=== PATIENT | female | born 1990 | race American Indian/Alaskan Native ===

== ENCOUNTER 2016-10-03 17:13 | Emergency (ER) | payer SELFPAY ==
[2016-10-03 18:04] LABS: Basophils % (Auto) 0.5 % (0.0-1.8); Eosinophils % (Auto) 1.5 % (0.0-4.3); Hematocrit 38.2 % (30.3-42.9); Hemoglobin 12.3 gm/dl (10.1-14.3); Mean Corpuscular HGB Conc 32 % (30-34); Mean Corpuscular Hemoglobin 27 pg (28-32); Mean Corpuscular Volume 84 fl (79-97); Platelet Count 193 K/mm3 (140-440); Red Blood Count 4.53 M/mm3 (3.65-5.03); Red Cell Distribution Width 14.5 % (13.2-15.2); White Blood Count 4.8 K/mm3 (4.5-11.0)
[2016-10-03 18:26] LABS: Bilirubin,Urine NEG (Negative); Blood,Urine NEG (Negative); Ketones,Urine TR mg/dL (Negative); Leukocyte Esterase,Urine NEG (Negative); Mucus,Urine 3+ /HPF; Nitrite,Urine NEG (Negative); Urobilinogen,Urine < 2.0 mg/dL (<2.0)
--- NOTE | 2016-10-03 21:39 | Emergency Department Report ---
ED Female HPI - General Chief complaint: Urogenital-Female Stated complaint: 6WKS /SPOTTING/CRAMPING/PAIN Time Seen by Provider: 10/03/16 21:35 Source: patient Mode of arrival: Ambulatory Limitations: No Limitations - History of Present Illness Initial comments: 26-year-old female thinks the emergency department with vaginal bleeding and pelvic pain. Patient states symptoms started 1 day prior. She states pelvic pain is cramping in nature, intermittant, no relaxing nor worsening factors. Pt states pain makes her right-sided sciatica worse. Patient states bleeding has been light, intermittent less than one pad used since symptom onset. Patient admits she took a test in the home and was positive. Patient states her last menstrual period was 08/15/2016. She admits she is having urinary symptoms of dysuria. MD Complaint: vaginal bleeding, pelvic pain -: Gradual, days(s) (1) Radiation: other (right hip ) Severity: moderate Severity scale (0 -10): 4 Quality: cramping Consistency: intermittent Improves with: none Worsens with: none Are you Now?: Yes Associated Symptoms: vaginal discharge, vaginal bleeding, abdominal pain. denies: nausea/vomiting, loss of appetite, dysuria, hematuria - Related Data Sexually active: Yes Previous Rx's Medication Instructions Recorded Last Taken Type Acetaminophen/Codeine [Tylenol 1 tab PO Q6H PRN #15 tab 10/04/16 Unknown Rx /Codeine # 3 tab] Metoclopramide [Reglan] 10 mg PO TID #30 tab 10/04/16 Unknown Rx #103/Iron Fumarate/FA 1 each PO DAILY #30 tablet 10/04/16 Unknown Rx [ Tablet] Allergies Allergy/AdvReac Type Severity Reaction Status Date / Time No Known Allergies Allergy Verified 10/03/16 17:28 ED Review of Systems ROS: Stated complaint: 6WKS /SPOTTING/CRAMPING/PAIN Other details as noted in HPI Constitutional: denies: chills, fever Eyes: denies: eye pain, eye discharge, vision change ENT: denies: ear pain, throat pain Respiratory: denies: cough, shortness of breath, wheezing Cardiovascular: denies: chest pain, palpitations Endocrine: no symptoms reported Gastrointestinal: denies: abdominal pain, nausea, diarrhea Genitourinary: abnormal menses. denies: urgency, dysuria, discharge Musculoskeletal: denies: back pain, joint swelling, arthralgia Skin: denies: rash, lesions Neurological: denies: headache, weakness, paresthesias Psychiatric: denies: anxiety, depression Hematological/Lymphatic: denies: easy bleeding, easy bruising ED Past Medical Hx - Past Medical History Previous Medical History?: No - Surgical History Additional Surgical History: X 3 - Social History Smoking Status: Never Smoker Substance Use Type: None - Medications Home Medications: Home Medications Medication Instructions Recorded Confirmed Last Taken Type Acetaminophen/Codeine [Tylenol 1 tab PO Q6H PRN #15 tab 10/04/16 Unknown Rx /Codeine # 3 tab] Metoclopramide [Reglan] 10 mg PO TID #30 tab 10/04/16 Unknown Rx #103/Iron Fumarate/FA 1 each PO DAILY #30 tablet 10/04/16 Unknown Rx [ Tablet] ED Physical Exam - General Limitations: No Limitations ED Course Vital Signs 10/03/16 10/03/16 17:30 21:26 Temperature 99.0 F Pulse Rate 99 H 72 Respiratory 17 18 Rate Blood Pressure 111/73 Blood Pressure 119/80 [Left] O2 Sat by Pulse 98 99 Oximetry ED Medical Decision Making - Lab Data Result diagrams: 10/03/16 17:42 - Radiology Data Radiology results: report reviewed Transvaginal grayscale and color Doppler ultrasound evaluation the pelvis. Fluid filled within the endometrium and endocervical region. No organization within the endometrium to suggest gestational sac formation at this time. Endometrial thickness overall is approximately 13 mM. The ovaries are sonographically unremarkable and measured 1.80.9X1.6 cm on the right and 3.7X1. 6X3.5 centimeters on the left. Final impression no intrauterine identified at this time. Differential diagnosis includes early normal versus abnormal tO include of unknown location/ ectopic . Close interval sonographically and clinical follow-up recommended. Dr. BURGOS - Medical Decision Making 26-year-old female presenting to the emergency department with vaginal bleeding positive test. Beta Quant is below detectable ultrasound levels however patient is aware that she still may have an ectopic and understands she must have close OB follow-up with repeat US and beta quant. Currently patient is comfortable, she has no complaints. She verbalizes understanding of ectopic precautions discussed with her. Critical Care Time: No Critical care attestation.: If time is entered above; I have spent that time in minutes in the direct care of this critically ill patient, excluding procedure time. ED Disposition Clinical Impression: Vaginal bleeding, Threatened Disposition: - TO HOME OR SELFCARE Is pt being admited?: No Does the pt Need Aspirin: No Condition: Stable Instructions: Threatened Miscarriage (ED) Prescriptions: Acetaminophen/Codeine [Tylenol /Codeine # 3 tab] 1 tab PO Q6H PRN #15 tab PRN Reason: Pain , Severe (7-10) Metoclopramide [Reglan] 10 mg PO TID #30 tab #103/Iron Fumarate/FA [ Tablet] 1 each PO DAILY #30 tablet Referrals: PRIMARY CARE, [Primary Care Provider] - 3-5 Days Forms: Work/School Release Form(ED)
[2016-10-03] MEDS ORDERED: NORCO 5/325 PO ONE (21:41)
[2016-10-04 00:41] VITALS: BP 112/72
--- NOTE | 2016-10-04 09:59 | Ultrasound Report ---
FINAL REPORT EXAM: US OB \T\lt; = 14 WEEKS FETUS HISTORY: vag bleeding COMPARISONS: None. FINDINGS: Transabdominal grayscale and color Doppler ultrasound evaluation of the pelvis Fluid fluid within the endometrium and endocervical region. No organization within the endometrium to suggest gestational sac formation at this time. Endometrial thickness overall is approximately 13 millimeters. The ovaries are sonographically unremarkable and measure 1.8 x 0.9 x 1.6 cm on the right and 3.7 x 1.6 x 3.5 cm on the left. IMPRESSION: No intrauterine identified at this time. Differential diagnosis includes early normal versus abnormal to include of unknown location/ectopic . Close interval sonographic and clinical follow-up recommended.
--- NOTE | 2016-10-04 10:02 | Ultrasound Report ---
FINAL REPORT EXAM: US OB TRANSVAGINAL HISTORY: vag bleeding COMPARISONS: None. FINDINGS: Transvaginal grayscale and color Doppler ultrasound evaluation of the pelvis Fluid fluid within the endometrium and endocervical region. No organization within the endometrium to suggest gestational sac formation at this time. Endometrial thickness overall is approximately 13 millimeters. The ovaries are sonographically unremarkable and measure 1.8 x 0.9 x 1.6 cm on the right and 3.7 x 1.6 x 3.5 cm on the left. IMPRESSION: No intrauterine identified at this time. Differential diagnosis includes early normal versus abnormal to include of unknown location/ectopic . Close interval sonographic and clinical follow-up recommended.
== END 2016-10-04 00:39 | disposition home or self-care (01) ==
LOC: ED 17:13
DX: O20.0 Threatened abortion (principal); Z3A.01 Less than 8 weeks gestation of pregnancy
CPT/HCPCS: 36415; 76801; 76817; 81001; 84702; 85025; 86850; 86900; 86901; 87210; 87591; 99284

== ENCOUNTER 2016-10-06 13:41 | Emergency (ER) | payer SELFPAY ==
[2016-10-06 15:38] LABS: Basophils % (Auto) 0.2 % (0.0-1.8); Eosinophils % (Auto) 0.7 % (0.0-4.3); Hematocrit 38.5 % (30.3-42.9); Hemoglobin 12.4 gm/dl (10.1-14.3); Mean Corpuscular HGB Conc 32 % (30-34); Mean Corpuscular Hemoglobin 27 pg (28-32); Mean Corpuscular Volume 85 fl (79-97); Platelet Count 174 K/mm3 (140-440); Red Blood Count 4.56 M/mm3 (3.65-5.03); Red Cell Distribution Width 14.2 % (13.2-15.2); White Blood Count 6.9 K/mm3 (4.5-11.0)
--- NOTE | 2016-10-06 16:01 | Emergency Department Report ---
ED HPI - General Chief complaint: Vaginal Bleeding Stated complaint: 6 WKS W/CRAMPING /BLEEDING Time Seen by Provider: 10/06/16 14:56 Source: patient Mode of arrival: Ambulatory Limitations: No Limitations - History of Present Illness MD Complaint: vaginal bleeding -: Gradual Location: pelvis Radiation: none Severity: mild Severity scale (0 -10): 2 Quality: cramping Consistency: intermittent Improves with: none Worsens with: none Associated symptoms: vaginal bleeding. denies: nausea/vomiting, vaginal discharge, abdominal pain, dysuria, headache, vision changes, malaise, dysparuenia Vaginal bleeding: light :: Yes Number of weeks : 5 OB History - Current : no complications OB History - Previous Pregnancies: no complications Last menstrual period: 06/29/16 Pre-aracelis care: none - Related Data : 6 Para: 5 Ab: 1 Previous Rx's Medication Instructions Recorded Last Taken Type Acetaminophen/Codeine [Tylenol 1 tab PO Q6H PRN #15 tab 10/04/16 Unknown Rx /Codeine # 3 tab] Metoclopramide [Reglan] 10 mg PO TID #30 tab 10/04/16 Unknown Rx #103/Iron Fumarate/FA 1 each PO DAILY #30 tablet 10/04/16 Unknown Rx [ Tablet] Allergies Allergy/AdvReac Type Severity Reaction Status Date / Time No Known Allergies Allergy Verified 10/03/16 17:28 ED Review of Systems ROS: Stated complaint: 6 WKS W/CRAMPING /BLEEDING Other details as noted in HPI Comment: All other systems reviewed and negative ED Past Medical Hx - Past Medical History Previous Medical History?: No - Surgical History Additional Surgical History: X 3 - Social History Smoking Status: Never Smoker Substance Use Type: None - Medications Home Medications: Home Medications Medication Instructions Recorded Confirmed Last Taken Type Acetaminophen/Codeine [Tylenol 1 tab PO Q6H PRN #15 tab 10/04/16 Unknown Rx /Codeine # 3 tab] Metoclopramide [Reglan] 10 mg PO TID #30 tab 10/04/16 Unknown Rx #103/Iron Fumarate/FA 1 each PO DAILY #30 tablet 10/04/16 Unknown Rx [ Tablet] ED Physical Exam - General Limitations: No Limitations General appearance: alert, in no apparent distress - Head Head exam: Present: atraumatic, normocephalic - Eye Eye exam: Present: normal appearance, PERRL - ENT ENT exam: Present: normal exam, mucous membranes moist - Neck Neck exam: Present: normal inspection - Respiratory Respiratory exam: Present: normal lung sounds bilaterally. Absent: respiratory distress - Cardiovascular Cardiovascular Exam: Present: regular rate, normal rhythm. Absent: systolic murmur, diastolic murmur, rubs, gallop - GI/Abdominal GI/Abdominal exam: Present: soft, normal bowel sounds. Absent: distended, tenderness, guarding, rebound - Extremities Exam Extremities exam: Present: normal inspection - Back Exam Back exam: Present: normal inspection - Neurological Exam Neurological exam: Present: alert, oriented X3 - Psychiatric Psychiatric exam: Present: normal affect, normal mood - Skin Skin exam: Present: warm, dry, intact, normal color. Absent: rash ED Course Vital Signs 10/06/16 14:31 Temperature 97.9 F Pulse Rate 87 Respiratory 18 Rate Blood Pressure 109/73 O2 Sat by Pulse 99 Oximetry ED Medical Decision Making - Lab Data Result diagrams: 10/06/16 14:57 - Medical Decision Making patient doing well, hcg slightly elevated , rest of the labs negative , went from 107 to 230, will need a repeat 48 h hcg done here Critical care attestation.: If time is entered above; I have spent that time in minutes in the direct care of this critically ill patient, excluding procedure time. ED Disposition Clinical Impression: Abdominal pain Disposition: DC-01 TO HOME OR SELFCARE Is pt being admited?: No Does the pt Need Aspirin: No Condition: Good Instructions: Threatened Miscarriage (ED) Referrals: PRIMARY CARE, [Primary Care Provider] - 3-5 Days Time of Disposition: 16:15
[2016-10-06 16:21] LABS: Anion Gap 17 mmol/L; BUN/Creatinine Ratio 6.66; Blood Urea Nitrogen 4 mg/dL (7-17); Calcium 9.1 mg/dL (8.4-10.2); Carbon Dioxide 24 mmol/L (22-30); Chloride 105.8 mmol/L (98-107); Glucose 79 mg/dL (65-100); Potassium 3.8 mmol/L (3.6-5.0); Sodium 143 mmol/L (137-145)
[2016-10-06 16:38] VITALS: BP 111/75
== END 2016-10-06 16:36 | disposition home or self-care (01) ==
LOC: ED 13:41
DX: R10.9 Unspecified abdominal pain (principal); N93.9 Abnormal uterine and vaginal bleeding, unspecified
CPT/HCPCS: 36415; 80048; 84702; 85025; 99283

== ENCOUNTER 2016-10-09 08:44 | Emergency (ER) | payer SELFPAY ==
[2016-10-09 09:32] VITALS: BP 115/71
--- NOTE | 2016-10-09 12:12 | Emergency Department Report ---
HPI - General Chief Complaint: Vaginal Bleeding Time Seen by Provider: 10/09/16 11:14 - HPI HPI: This is a 26-year-old female who was presents to ED for the third time for vaginal bleeding and . Patient states above 3 days ago she started some heavy bleeding like a period. She states bleeding has not stopped the past 3 days. Patient states she was told to come back for an ultrasound" level. She denies abdominal pain. She states mild low intermittent cramping like a period. She denies fevers/chills/nausea/vomiting/ ED Past Medical Hx - Past Medical History Previous Medical History?: No - Surgical History Additional Surgical History: X 3 - Social History Smoking Status: Never Smoker Substance Use Type: None - Medications Home Medications: Home Medications Medication Instructions Recorded Confirmed Last Taken Type Acetaminophen/Codeine [Tylenol 1 tab PO Q6H PRN #15 tab 10/04/16 Unknown Rx /Codeine # 3 tab] Metoclopramide [Reglan] 10 mg PO TID #30 tab 10/04/16 Unknown Rx #103/Iron Fumarate/FA 1 each PO DAILY #30 tablet 10/04/16 Unknown Rx [ Tablet] Ibuprofen [Motrin] 800 mg PO Q8HR PRN #40 tablet 10/09/16 Unknown Rx ED Review of Systems ROS: Stated complaint: X6 WKS/BLEEDING/BACK PAIN Other details as noted in HPI Constitutional: denies: chills, fever Eyes: denies: eye pain, eye discharge, vision change ENT: denies: ear pain, throat pain Respiratory: denies: cough, shortness of breath, wheezing Cardiovascular: denies: chest pain, palpitations Endocrine: no symptoms reported Gastrointestinal: denies: abdominal pain, nausea, diarrhea Genitourinary: denies: urgency, dysuria, discharge Musculoskeletal: denies: back pain, joint swelling, arthralgia Skin: denies: rash, lesions Neurological: denies: headache, weakness, paresthesias Psychiatric: denies: anxiety, depression Hematological/Lymphatic: denies: easy bleeding, easy bruising Physical Exam - Physical Exam Vital Signs: Vital Signs 10/09/16 09:32 Temperature 98.4 F Pulse Rate 79 Respiratory 18 Rate Blood Pressure 115/71 [Right] O2 Sat by Pulse 100 Oximetry Physical Exam: GENERAL: Alert and oriented x3, no apparent distress, Normal Gait, atraumatic. HEAD: Head is normocephalic and a-traumatic. LUNGS: Symetrical with respiration, No wheezing, no rales or crackles, CTAB. HEART: S1, S2 present, regular rate and rhythm without murmur, no rubs, no gallops. Non tender to palpation ABDOMEN: No organomegaly was noted,Positive bowel sounds, soft, and non- distended. . Nontender to palpation on all Quadrants, NO CVA tenderness. GENITOURINARY: External genitalia without erythema, active blood smear. Vaginal vault is with moderate dark red blood. Cervix is of normal color without lesion. Cervical os open, active bleeding. Uterus is noted to be of normal size and nontender. No cervical motion tenderness. No masses are palpated. The adnexa are without masses or tenderness. SKIN: Warm and dry, No lesions, No ulceration or induration present. ED Course Vital Signs 10/09/16 09:32 Temperature 98.4 F Pulse Rate 79 Respiratory 18 Rate Blood Pressure 115/71 [Right] O2 Sat by Pulse 100 Oximetry ED Medical Decision Making - Radiology Data Radiology results: report reviewed, image reviewed ULTRASOUND OB LESS THAN 14 WEEKS FETUS ULTRASOUND OB TRANSVAGINAL HISTORY: Vaginal bleeding during . TECHNIQUE: Transabdominal and transvaginal ultrasound with color and spectral doppler interrogation. Compared to 10/03/16. The uterus measures 9 x 6 x 6 cm. No uterine mass. The endometrial stripe measures 10 mm. No intrauterine gestational sac is identified. No heart tones were demonstrated. The right ovary measures 4.4 x 2.4 x 2.6 cm. The left ovary measures 3.6 x 1.3 x 3.5 cm. No adnexal cyst or mass is identified. No free pelvic fluid. IMPRESSION: Essentially normal uterus and ovaries. No intrauterine is demonstrated. This may represent a spontaneous . Please note that an ectopic is still not entirely excluded. Transcribed By: TTR Dictated By: BERTHA CHICAS JR, MD Electronically Authenticated By: BERTHA CHICAS JR, MD Signed Date/Time: 10/09/16 1245 - Medical Decision Making 26-year-old female presents with spontaneous ED course: 1 increase from 230 to 376 in the past 3 days This is not consistent with normal intrauterine . Ultrasound ordered. Ultrasound shows no intrauterine , ovaries normal findings CT scan of the abdomen pelvis ordered. CT shows no abnormal findings Discussed with patient to follow up with [facility]. Discussed to take pain medication as prescribed Discussed with patient that we cannot Rule out ectopic E she experiences any signs such as fever,Unilateral pain to report to ED Discuss spontaneous and need for close follow-up as cannot rule out ectopic. Vital signs are normal she is no acute distress Critical care attestation.: If time is entered above; I have spent that time in minutes in the direct care of this critically ill patient, excluding procedure time. ED Disposition Clinical Impression: Spontaneous Disposition: DC- TO HOME OR SELFCARE Is pt being admited?: No Does the pt Need Aspirin: No Condition: Stable Instructions: Spontaneous Miscarriage (ED) Additional Instructions: If worsening symptoms arise please return to ED A fever, unilateral pelvic pain, heavier bleeding occurs return to ED if signs to continue taking her pain medications as prescribed. Follow-up with the OB has referred for serial quant levels Prescriptions: Ibuprofen [Motrin] 800 mg PO Q8HR PRN #40 tablet PRN Reason: Pain Referrals: PRIMARY CARE, [Primary Care Provider] - 3-[address] [facility] [Outside] - 3-5 Days [facility] [Outside] - 3-5 Days [facility] [Outside] - 3-5 Days LIZZETH WINSTON MD [Referring] - 3-5 Days RADHA BUENROSTRO MD [Referring] - 3-5 Days Forms: Work/School Release Form(ED) Time of Disposition: 15:29
--- NOTE | 2016-10-09 12:54 | Ultrasound Report ---
ULTRASOUND OB LESS THAN 14 WEEKS FETUS ULTRASOUND OB TRANSVAGINAL HISTORY: Vaginal bleeding during . TECHNIQUE: Transabdominal and transvaginal ultrasound with color and spectral doppler interrogation. Compared to 10/03/16. The uterus measures 9 x 6 x 6 cm. No uterine mass. The endometrial stripe measures 10 mm. No intrauterine gestational sac is identified. No heart tones were demonstrated. The right ovary measures 4.4 x 2.4 x 2.6 cm. The left ovary measures 3.6 x 1.3 x 3.5 cm. No adnexal cyst or mass is identified. No free pelvic fluid. IMPRESSION: Essentially normal uterus and ovaries. No intrauterine is demonstrated. This may represent a spontaneous . Please note that an ectopic is still not entirely excluded.
[2016-10-09] MEDS ORDERED: NACL ONE (14:25)
--- NOTE | 2016-10-09 15:09 | Cat Scan Report ---
CT SCAN OF THE ABDOMEN AND PELVIS WITHOUT AND WITH CONTRAST: HISTORY: Vaginal bleeding, pain.. TECHNIQUE: Helical CT before and after IV contrast. Sagittal and coronal reformatted images. FINDINGS: The OB ultrasounds performed earlier today were reviewed. The liver is normal in size and is without focal defect. No gallstones or biliary dilatation are noted. The spleen and pancreas demonstrate a normal size and attenuation with no evidence of abnormal mass. The kidneys are normal in size and position with no evidence of hydronephrosis or mass. The adrenal glands are normal. There is no intestinal obstruction or ascites. The abdominal aorta is normal. The uterus is unremarkable. There is a 1.5 cm focus of enhancement in the left ovary of uncertain significance. This may represent a corpus luteum cyst. Please note an ectopic cannot be ruled in or ruled out with CT. There is no evidence of peritoneal air or fluid. There is no evidence of any abnormal masses or fluid collections within the pelvis. No adenopathy is identified. The bladder is normal. IMPRESSION: Unremarkable CT scan of the abdomen and pelvis without and with contrast.
== END 2016-10-09 15:43 | disposition home or self-care (01) ==
LOC: ED 08:44
DX: O03.9 Complete or unspecified spontaneous abortion without complication (principal); Z3A.01 Less than 8 weeks gestation of pregnancy
CPT/HCPCS: 36415; 74178; 76801; 76817; 84702; 84703; 99284; Q9967